=== PATIENT | female | born 1950 | race Caucasian/White ===

== ENCOUNTER → 2023-04-14 12:05 | Outpatient (REF) | payer MEDICARE, SELFPAY ==
[2023-04-14 15:09] LABS: Blood Urea Nitrogen 13 mg/dl (7-17); Calcium 9.4 mg/dl (8.4-10.2); Carbon Dioxide 29 mmol/L (22-30); Chloride 101 mmol/L (98-107); Glucose 83 mg/dl (70-99); Potassium 3.4 mmol/L (3.5-5.1); Sodium 139 mmol/L (135-145); eGFR > 60.00
== END ==
LOC: HWLAB 12:05
PROVIDERS: ATTENDING PHYSICIAN Internal Medicine Gastroenterology; FAMILY PHYSICIAN Physician Assistant Medical
DX: R19.7 Diarrhea, unspecified (principal)
CPT/HCPCS: 36415; 80048

== ENCOUNTER → 2023-04-18 10:19 | Outpatient (REF) | payer MEDICARE, SELFPAY | LOC: HWRAD 10:19 | PROVIDERS: ATTENDING PHYSICIAN Internal Medicine Gastroenterology; FAMILY PHYSICIAN Physician Assistant Medical | DX: R19.7 Diarrhea, unspecified (principal) | CPT/HCPCS: 74177; Q9967 ==

== ENCOUNTER 2023-04-29 10:56 | Outpatient (RCR) | payer MEDICARE, SELFPAY | END 2023-04-29 23:59 | disposition home or self-care (01) | LOC: RPT 10:56 | PROVIDERS: ATTENDING PHYSICIAN Orthopaedic Surgery Orthopaedic Surgery of the Spine; FAMILY PHYSICIAN Physician Assistant Medical | DX: M51.26 Other intervertebral disc displacement, lumbar region (principal); Z73.6 Limitation of activities due to disability | CPT/HCPCS: 97110; 97140; 97162 ==

== ENCOUNTER → 2023-08-22 11:24 | Outpatient (REF) | payer MEDICARE, SELFPAY | LOC: HWWDC 11:24 | PROVIDERS: ATTENDING PHYSICIAN Obstetrics & Gynecology; FAMILY PHYSICIAN Physician Assistant Medical | DX: Z12.31 Encounter for screening mammogram for malignant neoplasm of breast (principal) | CPT/HCPCS: 77063; 77067 ==

== ENCOUNTER 2023-12-01 09:04 | Outpatient (RCR) | payer MEDICARE, SELFPAY | END 2023-12-01 23:59 | disposition home or self-care (01) | LOC: RPT 09:04 | PROVIDERS: ATTENDING PHYSICIAN Physician Assistant Medical | DX: M54.16 Radiculopathy, lumbar region (principal); Z73.6 Limitation of activities due to disability; R26.2 Difficulty in walking, not elsewhere classified; G89.29 Other chronic pain; M79.604 Pain in right leg | CPT/HCPCS: 97110; 97140; 97162 ==

== ENCOUNTER 2023-12-10 10:22 | Outpatient (RCR) | payer MEDICARE, SELFPAY | END 2023-12-10 23:59 | disposition home or self-care (01) | LOC: RPT 10:22 | PROVIDERS: ATTENDING PHYSICIAN Physician Assistant Medical | DX: M54.16 Radiculopathy, lumbar region (principal); G89.29 Other chronic pain; Z73.6 Limitation of activities due to disability | CPT/HCPCS: 97110; 97140 ==

== ENCOUNTER 2024-05-24 08:56 | Outpatient (RCR) | payer MEDICARE, SELFPAY | END 2024-05-24 23:59 | disposition home or self-care (01) | LOC: RPT 08:56 | PROVIDERS: ATTENDING PHYSICIAN Nurse Practitioner Family; FAMILY PHYSICIAN Physician Assistant Medical | DX: R42 Dizziness and giddiness (principal); M54.2 Cervicalgia; Z73.6 Limitation of activities due to disability | CPT/HCPCS: 97110; 97140; 97162 ==

== ENCOUNTER → 2024-07-21 09:35 | Outpatient (REF) | payer MEDICARE, SELFPAY | LOC: MRI 3T 09:35 | PROVIDERS: ATTENDING PHYSICIAN Physician Assistant Medical | DX: R42 Dizziness and giddiness (principal) | CPT/HCPCS: 70553; A9575 ==

== ENCOUNTER → 2024-12-01 11:22 | Outpatient (REF) | payer MEDICARE, SELFPAY | LOC: RAD 11:22 | PROVIDERS: ATTENDING PHYSICIAN Obstetrics & Gynecology; FAMILY PHYSICIAN Physician Assistant Medical | DX: Z78.0 Asymptomatic menopausal state (principal) | CPT/HCPCS: 77080 ==

== ENCOUNTER 2025-02-21 23:26 | Emergency (ER) | payer MEDICARE, SELFPAY ==
[2025-02-21 23:43] VITALS: BP 142/90
[2025-02-22 00:46] VITALS: BP 167/78
[2025-02-22 00:48] VITALS: BMI 25.6
--- NOTE | 2025-02-22 01:55 | ED.GENMED ---
History of Present Illness
General
Chief Complaint: Musculo-Skeletal Complaint
Source: patient
Exam Limitations: none
Time Seen by Provider: 02/22/25 01:43
History of Present Illness
History of Present Illness:
See MDM
Past History
Past History
ED Past Medical History: Other (glaucoma, ); Negative Arrthythmia, CAD, Cancer, CVA, HTN, Hypercholesterolemia, IDDM, NIDDM, [place] or Renal failure
ED Past Surgical History: , Gynecological (tubal, D&C), Orthopedic (Foot surgery) and Other (cataracts, ); Negative Cardiac
Social History
Tobacco: Non-smoker
Alcohol: Occasional
Drug: None
Personal:
Living: with family
Employment: Retired
Family History
Family History: Negative Early CAD
Phy Exam
Physical Exam
Physical Exam:
See MDM
Course
Orders/Labs/Results
Orders:
Orders
02/21/25 23:45
Hand, Left 3 View [CR Hand - Left Min 3 Views] Urgent
Comment:
Reason For Exam: PAIN
02/22/25 01:55
Splints/Slings/Crut- Treatment ONCE
Oxycodone [Roxicodone] 5 mg PO NOW STA
Vital Signs
Initial and Last Documented VS:
Initial Vital Signs
Temp Pulse Resp BP Pulse Ox
97.4 F 80 20 142/90 98
02/21/25 23:43 02/21/25 23:43 02/21/25 23:43 02/21/25 23:43 02/21/25 23:43
Last Documented Vital Signs
Temp Pulse Resp BP Pulse Ox
97.7 F 71 20 167/78 96
02/22/25 00:46 02/22/25 00:46 02/22/25 00:46 02/22/25 00:46 02/22/25 01:57
MDM/Problems Addressed
Differential Diagnosis Includes:
Note:
CHIEF COMPLAINT(S)
Left hand pain with associated thumb and back of the hand pain.
HISTORY OF PRESENT ILLNESS
The patient is a 74-year-old female who presented with complaints of sudden onset left thumb pain which began while she was watching television. She noticed the pain as she was holding her tea mug. She reports that her thumb began to cramp, leading
her to release the tea mug. The pain quickly intensified and spread to the entire hand, preventing her from touching it or using it to get dressed. Over time, the pain localized to the thumb and the back of the hand. She describes her past day
involving excessive use of her hands, including making 100 meatballs. The patient reports some improvement in symptoms, noting she can now move her thumb, although previously she couldn't. She also mentions that the veins in her hand appeared bulgy,
potentially due to cramping.
The pain was severe enough for her to try self-medicating with a combination of flexeril and ibuprofen around 10:30 pm, but this did not provide relief. The patient queried if she might have pinched a nerve, but was informed that the presentation of
symptoms suggests muscle involvement rather than nerve impingement, considering the pattern of pain with movement. Possible overuse syndrome was discussed, as she engaged in an atypical amount of manual activity for her, leading to concern over a
condition like tendonitis.
The patient was advised that if it were a blood clot, it would likely have been superficial thrombophlebitis, rather than deep vein thrombosis, and treatment would primarily involve a warm compress. Given the pattern of symptoms and improvement, it
was suggested that perhaps the pain was muscle-related or a tendonitis-type issue.
PHYSICAL EXAM
General: Alert, no acute distress.
Skin: Warm, dry.
Head: Normocephalic, atraumatic
Neck: Appears supple, trachea midline.
Eyes, Ears, Nose, Mouth, and Throat: Moist mucous membranes
Cardiovascular: No signs of cyanosis
Respiratory: Respirations are non-labored.
Abdomen: Non-distended
Musculoskeletal: Decreased range of motion to left hand secondary to pain but distal extremity otherwise neurovascularly intact.
Neurological: No focal neurological deficit observed.
Psychiatric: Cooperative, appropriate mood and affect.
PLAN
A volar splint was recommended for comfort while sleeping. The patient will be provided splint to take home.
DIFFERENTIAL DIAGNOSIS
The Differential Diagnosis includes, in no particular order and is not limited to:
- Overuse syndrome
- Tendonitis
- Muscle spasm
- Carpal tunnel syndrome
- De Quervains tenosynovitis
- Superficial thrombophlebitis
- Arthritis
- Nerve impingement
- Referred pain from cervical radiculopathy
- Lymphatic obstruction
SUMMARY OF ENCOUNTER
The patient was seen in the emergency department due to intense and sudden left thumb and hand pain, likely secondary to overuse. Physical examination suggested no significant nerve involvement and more muscle or tendineous origin for the symptoms.
The recommendation was made to use a splint and apply a warm compress at home. Pain management was discussed, and the patient was offered pain relief.
DISPOSITION
The patient is to be discharged with home care instructions for managing the pain and using a splint.
MEDICATION RECONCILIATION
The patient is currently taking iitu-syc-bykgoow ibuprofen and cyclobenzaprine for pain management. A prescription for acetaminophen and oxycodone (Percocet) as needed for pain relief was also provided.
MEDICAL DECISION MAKING
- Complexity of Data Reviewed: Chronic conditions affecting care possibly related to the strain from recent sustained activity. Number and complexity of problems addressed include:
- Overuse syndrome
- Tendonitis
- Muscle spasm
- Data:
Category 1
- Clinical information obtained from the patients report of symptoms and responses to inquiries about recent activities and movements.
-Risk:
Prescription medication was prescribed (acetaminophen and oxycodone).
Consideration was given to the potential for blood clot or deep venous thrombosis, but risk remains low given the presentation and location of symptoms.
SUMMARY OF ENCOUNTER
The 74-year-old female patient presented to the emergency department with sudden onset left hand pain, particularly affecting the thumb and back of the hand. The pain began while she was watching TV and intensified quickly, leading to difficulty in
using her hand. The patient reported making 100 meatballs earlier, indicating an unusual amount of manual activity. The examination suggested overuse syndrome with symptoms resolving on their own. It was determined her pain was likely due to muscle
spasms or tendonitis rather than nerve-related issues. An X-ray was performed and showed no acute bone abnormalities or fractures.
DISPOSITION
The patient is to be discharged with home care instructions.
PLAN
A volar splint will be provided for comfort, especially during sleep. Home care instructions will involve the use of a splint and applying a warm compress. Pain management will be through prescribed medications, including acetaminophen and oxycodone
as needed.
PATIENT EDUCATION AND COUNSELING
The patient was informed that her symptoms likely resulted from excessive hand use, potentially leading to muscle or tendon strain. Education on using a splint and warm compress at home was provided to manage pain.
FOLLOW-UP INSTRUCTIONS
The patient should follow up with her primary care physician for further evaluation if symptoms persist or worsen.
MEDICATION RECONCILIATION
The patient was prescribed acetaminophen and oxycodone for pain relief. She is also taking [id number] ibuprofen and cyclobenzaprine.
MEDICAL DECISION MAKING
- Number and Complexity of Problems Addressed: Chronic conditions affecting care possibly related to recent sustained activity. Differential Diagnosis includes overuse syndrome, tendonitis, muscle spasm, carpal tunnel syndrome, De Quervains
tenosynovitis, superficial thrombophlebitis, arthritis, nerve impingement, referred pain from cervical radiculopathy, lymphatic obstruction.
- Data:
Category 1
- X-ray of the left hand reviewed and showed no acute bone abnormalities.
- Clinical information obtained from the patient detailing her recent activity.
- Risk:
Prescription medication was prescribed for pain management.
DIAGNOSIS
- Tendonitis, left hand
*Pulse Oximetry
SaO2: 96
Oxygen Mode of Delivery: Room air
Patient hypoxic: no
*Critical Care Note
Total Time (30-74mins, 75-104mins- exclusive of procedures): Not Applicable
ED Attending Note
-
Portions of this chart may have been created with voice recognition software.� Occasional wrong word or��sound alike� substitutions may have occurred due to the inherent limitations of voice recognition software.
Discharge Plan
Departure
Patient Disposition: Home (Routine Discharge)
Date of Disposition: 02/22/25
Time of Disposition: 01:58
Patient with high blood pressure during this ER visit?: Yes
Discharge Problem:
Hand pain, left
Instructions: Hand pain
Prescriptions:
No Action
levobunolol 1 DROP drops
1 drp OPHTHALMIC BID
Patient Comments:
both eyes
prednisolone acetate 1 DROP drops,suspension
1 drp OPTH DAILY
Patient Comments:
both eyes
meclizine 25 MG tablet
25 mg PO Q8HPRN PRN (Reason: nausea or vertigo) Qty: 12 0RF
amoxicillin-pot clavulanate 1 TABLET tablet
1 tab PO Q12 Qty: 14 0RF
lisinopril 5 mg tablet
5 mg PO DAILY Qty: 10 0RF
Referrals:
Danii Lowe PA-C [Family Provider, Family Practice]
Activity Restrictions/Additional Instructions:
Please return for any worsening symptoms.
You may return at any time if you have further concerns.
Please follow up with your doctor at the first available appointment, preferably this week.
Please use a splint for comfort.
Thank you for choosing [facility].
Interventions
Interventions:
*General Assessment Last Done: 02/22/25 00:43
*Neglect/Abuse Screening Last Done: 02/21/25 23:43
*ED COVID-19 Vaccine History Last Done: 02/22/25 00:43
*ED Influenza Vaccine History Last Done: 02/22/25 00:[address]
[facility] Fall Risk Assessment Tool Last Done: 02/22/25 00:48
*Risk Screen - Suicide (C-SSRS) Last Done: 02/21/25 23:43
ED-Musculoskeletal Assessment Last Done: 02/22/25 00:44
Discharge Date and Time
Print Language: ALBANIAN
[2025-02-22] MEDS: ROXICODONE 5 MG PO (02:08)
== END 2025-02-22 02:14 | disposition home or self-care (01) ==
LOC: EMR 23:26
PROVIDERS: EMERGENCY PHYSICIAN Student in an Organized Health Care Education/Training Program; FAMILY PHYSICIAN Physician Assistant Medical
DX: M79.642 Pain in left hand (principal); R03.0 Elevated blood-pressure reading, without diagnosis of hypertension; H40.9 Unspecified glaucoma
CPT/HCPCS: 99283; 29125; 73130